=== PATIENT | female | born 1965 | race Hispanic/Latino ===

== ENCOUNTER 2019-02-08 05:33 | Emergency (ER) | payer SELFPAY ==
[2019-02-08 05:40] VITALS: BP 144/75
[2019-02-08] MEDS ORDERED: diphenhydrAMINE 25 MG CAP PO ONE (05:53)
[2019-02-08] MEDS ORDERED: FAMOTIDINE 20 MG TAB PO ONE (05:53)
[2019-02-08] MEDS ORDERED: predniSONE 20 MG TAB PO ONE (05:53)
--- NOTE | 2019-02-08 05:57 | Emergency Department Report ---
ED Rash HPI - HPI Chief Complaint: Skin Rash Stated Complaint: RASH Duration: 2 Days Location: Back, Abdomen, Upper Extremities, Lower Extremities Suspected Cause: Plant Rash Symptoms: Yes Itching, No Facial Swelling, No Tongue/Oral Swelling, No Breathing Difficulties, No Choking Sensation, No Wheezing/Dyspnea, No Peeling, No Blistering, No Fever, No Lightheaded, No Malaise, No Myalgias Severity: moderate (pt states she pulls weeds out of her garden 3 days, and started itching all lover wonc done) ED Review of Systems ROS: Stated complaint: RASH Other details as noted in HPI Constitutional: denies: chills, fever Eyes: denies: eye pain, eye discharge, vision change ENT: as per HPI. denies: congestion Respiratory: denies: cough, shortness of breath, wheezing Cardiovascular: denies: chest pain, palpitations Endocrine: no symptoms reported Gastrointestinal: denies: abdominal pain, nausea, diarrhea Genitourinary: denies: urgency, dysuria, discharge Musculoskeletal: denies: back pain, joint swelling, arthralgia Skin: rash. denies: lesions Neurological: denies: headache, weakness, numbness, paresthesias, confusion, vertigo Psychiatric: denies: anxiety, depression Hematological/Lymphatic: denies: easy bleeding, easy bruising ED Past Medical Hx - Past Medical History Previous Medical History?: No - Surgical History Past Surgical History?: Yes Additional Surgical History: ovary removed - Social History Smoking Status: Never Smoker Substance Use Type: Alcohol - Medications Home Medications: Home Medications Medication Instructions Recorded Confirmed Last Taken Type EPINEPHrine [Epipen 2-Linus] 0.3 mg IJ ONCE PRN #1 auto.injct 02/08/19 Unknown Rx Famotidine [Pepcid] 20 mg PO BID #30 tablet 02/08/19 Unknown Rx Triamcinolone Aceton 0.1% (Nf) 1 applic TP BID #1 tube 02/08/19 Unknown Rx [Kenalog (NF)] diphenhydrAMINE [Benadryl CAP] 25 mg PO Q8HR PRN #30 capsule 02/08/19 Unknown Rx predniSONE [Deltasone] 40 mg PO QDAY 5 Days #10 tab 02/08/19 Unknown Rx Rash Exam - Exam General: Vital signs noted. No distress. Alert and acting appropriately. HEENT: No Periorbital Edema, No Conjuctival Injection, No Chemosis, No Perioral Edema, No Tongue Edema, No Uvular Edema, No Compromised Airway, No Drooling Lungs: Yes Good Air Exchange, Yes Stridor, No Wheezes, No Ronchi, No Cough, No Labored Respirations, No Retractions, No Use of Accessory Muscles, No Other Abnormal Lung Sounds Heart: Yes Regular, No Murmur Skin: Yes Urticarial Rash, Yes Erythema, No Maculopapular Rash, No Morbilliform rash, No Bulla(e), No Excoriations, No Weeping, No Tenderness, No Edema, No Encrustations ED Course Vital Signs 02/08/19 05:39 Temperature 97.5 F L Pulse Rate 70 Respiratory 18 Rate Blood Pressure 144/75 [Right] O2 Sat by Pulse 97 Oximetry - Reevaluation(s) Reevaluation #1: There is no rest distress, no stridor, no swelling 02/08/19 05:58 ED Medical Decision Making - Medical Decision Making symptoms improved, rash desolving, there are no hive, no weeping, no fever, no n/v no cp, no sob, plan: prednisone, benadry, pepcid, pt given epipen and epipen teaching, pt verbalized agreement and understandlng of same, pt for dec to home in sable condition at this time. Critical care attestation.: If time is entered above; I have spent that time in minutes in the direct care of this critically ill patient, excluding procedure time. ED Disposition Clinical Impression: Contact dermatitis Qualifiers: Contact dermatitis type: allergic Contact dermatitis trigger: unspecified trigger Qualified Code(s): L23.9 - Allergic contact dermatitis, unspecified cause Allergies Qualifiers: Encounter type: initial encounter Qualified Code(s): T78.40XA - Allergy, unspecified, initial encounter Disposition: TO HOME OR SELFCARE Is pt being admited?: No Does the pt Need Aspirin: No Condition: Stable Instructions: Contact Dermatitis (ED), Allergies (ED), Epinephrine (Injection) Prescriptions: diphenhydrAMINE [Benadryl CAP] 25 mg PO Q8HR PRN #30 capsule PRN Reason: itching rash predniSONE [Deltasone] 40 mg PO QDAY 5 Days #10 tab EPINEPHrine [Epipen 2-Linus] 0.3 mg IJ ONCE PRN #1 auto.injct PRN Reason: severe allergies Triamcinolone Aceton 0.1% (Nf) [Kenalog (NF)] 1 applic TP BID #1 tube Famotidine [Pepcid] 20 mg PO BID #30 tablet Referrals: PRIMARY CARE,MD [Primary Care Provider] - 3-5 Days [facility] [Outside] - 3-5 Days Forms: Work/School Release Form(ED) Time of Disposition: 06:45
== END 2019-02-08 06:54 | disposition home or self-care (01) ==
LOC: ED 05:33
DX: L23.9 Allergic contact dermatitis, unspecified cause (principal); Z79.899 Other long term (current) drug therapy; Z88.0 Allergy status to penicillin
CPT/HCPCS: 99282; J7512

== ENCOUNTER 2019-11-22 12:24 | Emergency (ER) | payer SELFPAY ==
[2019-11-22 13:22] VITALS: BP 112/81
--- NOTE | 2019-11-22 15:42 | Event Note ---
ED Screening Note Date of service: 11/22/19 Time: 15:39 ED Screening Note: 54-year-old female presents here with right foot pain a couple of days ago after falling down some steps at home. Patient states she was in pain tensioning tripped. Limping gait, tender to palpation at the great and second toe of the right, no deformity seen This initial assessment/diagnostic orders/clinical plan/treatment(s) is/are subject to change based on patients health status, clinical progression and re-assessment by fellow clinical providers in the ED. Further treatment and workup at subsequent clinical providers discretion. Patient/guardian urged not to elope from the ED as their condition may be serious if not clinically assessed and managed. Initial orders include: xr foot
--- NOTE | 2019-11-22 16:19 | XRay Report ---
Right foot-3 views INDICATION: MAIN. Fall with pain over the second through fourth toes COMPARISON: None. IMPRESSION: Mild soft tissue swelling about the forefoot with no acute fracture or malalignment. No significant DJD. Signer Name: Kai Bunch MD Signed: 11/22/2019 4:14 PM Workstation Name: [id number]
[2019-11-22] MEDS ORDERED: HYDROcodone/ACETAMINOPHEN 5-325 MG TAB PO ONE (17:17)
--- NOTE | 2019-11-22 17:28 | Emergency Department Report ---
<ISAAC EDWARDS - Last Filed: 11/22/19 17:34> ED Extremity Problem HPI - General Chief complaint: Extremity Injury, Lower Stated complaint: FOOT PAIN Time Seen by Provider: 11/22/19 17:16 Source: patient Mode of arrival: Ambulatory Limitations: No Limitations - History of Present Illness Initial comments: 54-year-old female presents here with right foot pain a couple of days ago after falling down some steps at home. Patient states she was pain attention and she tripped down and stepped wrong on a couple of steps. She was at home denies falling loss of consciousness. Patient states pain is getting worse and pain with walking MD Complaint: extremity pain - Related Data Previous Rx's Medication Instructions Recorded Last Taken Type EPINEPHrine [Epipen 2-Linus] 0.3 mg IJ ONCE PRN #1 auto.injct 02/08/19 Unknown Rx Famotidine [Pepcid] 20 mg PO BID #30 tablet 02/08/19 Unknown Rx Triamcinolone Aceton 0.1% (Nf) 1 applic TP BID #1 tube 02/08/19 Unknown Rx [Kenalog (NF)] diphenhydrAMINE [Benadryl CAP] 25 mg PO Q8HR PRN #30 capsule 02/08/19 Unknown Rx predniSONE [Deltasone] 40 mg PO QDAY 5 Days #10 tab 02/08/19 Unknown Rx Allergies Allergy/AdvReac Type Severity Reaction Status Date / Time Penicillins Allergy Unknown Verified 02/08/19 05:38 ED Past Medical Hx - Past Medical History Previous Medical History?: No - Surgical History Past Surgical History?: Yes Additional Surgical History: ovary removed - Social History Smoking Status: Never Smoker Substance Use Type: None - Medications Home Medications: Home Medications Medication Instructions Recorded Confirmed Last Taken Type EPINEPHrine [Epipen 2-Linus] 0.3 mg IJ ONCE PRN #1 auto.injct 02/08/19 Unknown Rx Famotidine [Pepcid] 20 mg PO BID #30 tablet 02/08/19 Unknown Rx Triamcinolone Aceton 0.1% (Nf) 1 applic TP BID #1 tube 02/08/19 Unknown Rx [Kenalog (NF)] diphenhydrAMINE [Benadryl CAP] 25 mg PO Q8HR PRN #30 capsule 02/08/19 Unknown Rx predniSONE [Deltasone] 40 mg PO QDAY 5 Days #10 tab 11/06/19 Unknown Rx ED Physical Exam - General Limitations: No Limitations General appearance: alert, in no apparent distress - Head Head exam: Present: atraumatic, normocephalic - Eye Eye exam: Present: normal appearance - ENT ENT exam: Present: mucous membranes moist - Neck Neck exam: Present: normal inspection - Respiratory Respiratory exam: Present: normal lung sounds bilaterally. Absent: respiratory distress - Cardiovascular Cardiovascular Exam: Present: regular rate, normal rhythm. Absent: systolic murmur, diastolic murmur, rubs, gallop - GI/Abdominal GI/Abdominal exam: Present: soft, normal bowel sounds - Extremities Exam Extremities exam: Present: normal inspection, other (Limping gait, tender to palpation at the great and second toe of the right, no deformity seen) - Back Exam Back exam: Present: normal inspection - Neurological Exam Neurological exam: Present: alert, oriented X3 - Psychiatric Psychiatric exam: Present: normal affect, normal mood - Skin Skin exam: Present: warm, dry, intact, normal color. Absent: rash ED Medical Decision Making - Radiology Data Radiology results: report reviewed, image reviewed Fluoro Time In Minutes: Right foot-3 views INDICATION: MAIN. Fall with pain over the second through fourth toes COMPARISON: None. IMPRESSION: Mild soft tissue swelling about the forefoot with no acute fracture or malalignment. No significant DJD. Signer Name: Kai Bunch MD Signed: 11/22/2019 4:14 PM Workstation Name: [id number] Transcribed By: KARO Dictated By: Kai Bunch MD Electronically Authenticated By: Kai Bunch MD Signed Date/Time: 11/22/19 1614 ED Disposition Clinical Impression: Contusion of right foot, Foot sprain Disposition: DC-01 TO HOME OR SELFCARE Condition: Stable Instructions: Foot Contusion (ED), Foot Sprain (ED) Referrals: EDGARD GARDNER DPM [Staff Physician] - as needed <JAI ROGERS - Last Filed: 11/22/19 17:47> ED Review of Systems ROS: Stated complaint: FOOT PAIN Other details as noted in HPI ED Course Vital Signs 11/22/19 11/22/19 13:19 15:38 Temperature 98.0 F 98 F Pulse Rate 98 H 93 H Respiratory 18 18 Rate Blood Pressure 112/81 112/81 O2 Sat by Pulse 96 100 Oximetry ED Medical Decision Making - Medical Decision Making Ms. Zendejas has right foot contusion. I personally evaluated patient. She has pain at the dorsal portion of the forefoot. No deformity. 2+ radial pulse intact. She was placed with Ousmane wrap. Ousmane wrap was applied to the left leg and ankle under my supervision. After application of the Ousmane wrap, the extremity was neurovascularly intact. Patient also was given postop shoe she understands that there is a risk of stress fracture. She was referred to ankle and produce specialist if pain persists beyond 2 weeks. Critical care attestation.: If time is entered above; I have spent that time in minutes in the direct care of this critically ill patient, excluding procedure time. ED Disposition Is pt being admited?: No Does the pt Need Aspirin: No
== END 2019-11-22 18:00 | disposition home or self-care (01) ==
LOC: ED 12:24
DX: S93.601A Unspecified sprain of right foot, initial encounter (principal); S90.31XA Contusion of right foot, initial encounter; Z79.899 Other long term (current) drug therapy; Z98.890 Other specified postprocedural states; W10.9XXA Fall (on) (from) unspecified stairs and steps, initial encounter; Y93.89 Activity, other specified; Y92.89 Other specified places as the place of occurrence of the external cause; Y99.8 Other external cause status
CPT/HCPCS: 99283

== ENCOUNTER 2020-01-16 13:29 | Emergency (ER) | payer SELFPAY ==
--- NOTE | 2020-01-16 16:46 | XRay Report ---
CHEST 2 VIEWS INDICATION / CLINICAL INFORMATION: Shortness of breath, cough. COMPARISON: None available. FINDINGS: SUPPORT DEVICES: None. HEART / MEDIASTINUM: No significant abnormality. LUNGS / PLEURA: No significant pulmonary or pleural abnormality. No pneumothorax. ADDITIONAL FINDINGS: No significant additional findings. IMPRESSION: No acute cardiopulmonary abnormality. Signer Name: John Castrejon MD Signed: 01/16/2020 4:41 PM Workstation Name: [id number]
--- NOTE | 2020-01-16 20:11 | Emergency Department Report ---
ED Chest Pain HPI - General Chief Complaint: Upper Respiratory Infection Stated Complaint: FLU SYMPTOMS Time Seen by Provider: 01/16/20 20:01 Source: patient Mode of arrival: Ambulatory Limitations: No Limitations - History of Present Illness Initial Comments: 54 female no significant past medical history presents emerge department complaining of a 2-day history of cough congestion associated with loss of taste headaches myalgia chills and occasional shortness of breath and then positive contact persons in the household have come down with a cold for which she thinks is the flu. She reports no diarrhea no known positive COVID-19 cases. No hemoptysis no hematemesis no hematochezia. No documented fevers. She reports no hematuria no dysuria no abdominal pain. No lower extremity edema. No rashes. States the cough is beginning to be more more aggravating and her symptoms do worsen with certain movements and palpation and she would like some medication to help control the cough and help her breathing. MD Complaint: chest pain Pain Location: substernal Pain Radiation: none Severity: mild, moderate Quality: aching, sharp Consistency: constant Worsens With: palpation, movement Treatments Prior to Arrival: none - Related Data Previous Rx's Medication Instructions Recorded Last Taken Type EPINEPHrine [Epipen 2-Linus] 0.3 mg IJ ONCE PRN #1 auto.injct 02/08/19 Unknown Rx Famotidine [Pepcid] 20 mg PO BID #30 tablet 02/08/19 Unknown Rx Triamcinolone Aceton 0.1% (Nf) 1 applic TP BID #1 tube 02/08/19 Unknown Rx [Kenalog (NF)] diphenhydrAMINE [Benadryl CAP] 25 mg PO Q8HR PRN #30 capsule 02/08/19 Unknown Rx predniSONE [Deltasone] 40 mg PO QDAY 5 Days #10 tab 02/08/19 Unknown Rx Albuterol Mdi (or & Nicu Only) 1 puff IH Q4-6H PRN #1 inha 01/16/20 Unknown Rx [ProAir HFA Inhaler] Azithromycin [Zithromax] 500 mg PO QDAY #3 tablet 01/16/20 Unknown Rx Benzonatate [Tessalon Perles] 100 mg PO Q8HR #20 capsule 01/16/20 Unknown Rx Allergies Allergy/AdvReac Type Severity Reaction Status Date / Time Penicillins Allergy Unknown Verified 02/08/19 05:38 Heart Score - HEART Score History: Slightly suspicious EKG: Normal Age: 45-65 Risk factors: No known risk factors Troponin: < normal limit HEART Score: 1 ED Review of Systems ROS: Stated complaint: FLU SYMPTOMS Other details as noted in HPI Comment: All other systems reviewed and negative ED Past Medical Hx - Past Medical History Previous Medical History?: No - Surgical History Past Surgical History?: Yes Additional Surgical History: ovary removed - Social History Smoking Status: Never Smoker Substance Use Type: None - Medications Home Medications: Home Medications Medication Instructions Recorded Confirmed Last Taken Type EPINEPHrine [Epipen 2-Linus] 0.3 mg IJ ONCE PRN #1 auto.injct 02/08/19 Unknown Rx Famotidine [Pepcid] 20 mg PO BID #30 tablet 02/08/19 Unknown Rx Triamcinolone Aceton 0.1% (Nf) 1 applic TP BID #1 tube 02/08/19 Unknown Rx [Kenalog (NF)] diphenhydrAMINE [Benadryl CAP] 25 mg PO Q8HR PRN #30 capsule 02/08/19 Unknown Rx predniSONE [Deltasone] 40 mg PO QDAY 5 Days #10 tab 02/08/19 Unknown Rx Albuterol Mdi (or & Nicu Only) 1 puff IH Q4-6H PRN #1 inha 01/16/20 Unknown Rx [ProAir HFA Inhaler] Azithromycin [Zithromax] 500 mg PO QDAY #3 tablet 01/16/20 Unknown Rx Benzonatate [Tessalon Perles] 100 mg PO Q8HR #20 capsule 01/16/20 Unknown Rx ED Physical Exam - General Limitations: No Limitations General appearance: alert, in no apparent distress - Head Head exam: Present: atraumatic, normocephalic - Eye Eye exam: Present: normal appearance, PERRL, EOMI Pupils: Present: normal accommodation - ENT ENT exam: Present: normal exam, normal orophraynx, mucous membranes moist - Neck Neck exam: Present: normal inspection, full ROM (With palpation on the sternal region.) - Respiratory Respiratory exam: Present: normal lung sounds bilaterally, chest wall tenderness. Absent: respiratory distress, wheezes, rales, rhonchi - Cardiovascular Cardiovascular Exam: Present: regular rate, normal rhythm. Absent: systolic murmur, diastolic murmur, rubs, gallop - GI/Abdominal GI/Abdominal exam: Present: soft, tenderness, normal bowel sounds - Extremities Exam Extremities exam: Present: normal inspection - Back Exam Back exam: Present: normal inspection - Neurological Exam Neurological exam: Present: alert, oriented X3 - Psychiatric Psychiatric exam: Present: normal affect, normal mood - Skin Skin exam: Present: warm, dry, intact, normal color. Absent: rash ED Course Vital Signs 01/16/20 15:12 Temperature 98.8 F Pulse Rate 105 H Respiratory 22 Rate Blood Pressure 144/95 [Right] O2 Sat by Pulse 95 Oximetry JOSHUA score - Joshua Score Age > 65: (0) No Aspirin use within the Past 7 Days: (0) No 3 or more CAD Risk Factors: (0) No 2 or more Angina events in past 24 hrs: (0) No Known CAD with more than 50% Stenosis: (0) No Elevated Cardiac Markers: (0) No ST Deviation Greater than 0.5mm: (0) No JOSHUA Score: 0 ED Medical Decision Making - Lab Data Result diagrams: 01/16/20 20:12 01/16/20 20:12 Lab Results 01/16/20 01/16/20 Range/Units 20:12 20:12 WBC 7.9 (4.5-11.0) K/mm3 RBC 4.73 (3.65-5.03) M/mm3 Hgb 15.4 H (10.1-14.3) gm/dl Hct 46.0 H (30.3-42.9) % MCV 97 (79-97) fl MCH 33 H (28-32) pg MCHC 33 (30-34) % RDW 13.9 (13.2-15.2) % Plt Count 295 (140-440) K/mm3 Lymph % (Auto) 30.6 (13.4-35.0) % [place] % (Auto) 6.2 (0.0-7.3) % Eos % (Auto) 3.3 (0.0-4.3) % Baso % (Auto) 0.6 (0.0-1.8) % Lymph # (Auto) 2.4 (1.2-5.4) K/mm3 [place] # (Auto) 0.5 (0.0-0.8) K/mm3 Eos # (Auto) 0.3 (0.0-0.4) K/mm3 Baso # (Auto) 0.0 (0.0-0.1) K/mm3 Seg Neutrophils % 59.3 (40.0-70.0) % Seg Neutrophils # 4.7 (1.8-7.7) K/mm3 Sodium 139 (137-145) mmol/L Potassium 4.4 (3.6-5.0) mmol/L Chloride 104.7 (98-107) mmol/L Carbon Dioxide 22 (22-30) mmol/L Anion Gap 17 mmol/L BUN 10 (7-17) mg/dL Creatinine 0.6 (0.6-1.2) mg/dL Estimated GFR > 60 ml/min BUN/Creatinine Ratio 17 % Glucose 117 H (65-100) mg/dL Calcium 8.9 (8.4-10.2) mg/dL Total Bilirubin 0.20 (0.1-1.2) mg/dL AST 24 (5-40) units/L ALT 29 (7-56) units/L Alkaline Phosphatase 67 (35-129) units/L Troponin T < 0.010 (0.00-0.029) ng/mL NT-Pro-B Natriuret Pep 54.00 (0-900) pg/mL Total Protein 6.2 L (6.3-8.2) g/dL Albumin 3.9 (3.9-5) g/dL Albumin/Globulin Ratio 1.7 % Lipase 62 H (13-60) units/L - EKG Data EKG shows normal: sinus rhythm Rate: normal - EKG Data Interpretation: normal EKG 01/16/20 22:27 Heart rate 75 QT normal limits [place] interval normal limits voltage - Radiology Data Radiology results: report reviewed [facility] [address] [place] [address] XRay Report Signed Patient: HAYLEY KAY MR#: [id number] : 1965 Acct:[id number] Age/Sex: 54 / F ADM Date: 01/16/20 Loc: ED Attending Dr: Ordering Physician: ED MD JEANIE Date of Service: 01/16/20 Procedure(s): XR chest routine 2V Accession Number(s): [id number] cc: ED DOCMD Fluoro Time In Minutes: CHEST 2 VIEWS INDICATION / CLINICAL INFORMATION: Shortness of breath, cough. COMPARISON: None available. FINDINGS: SUPPORT DEVICES: None. HEART / MEDIASTINUM: No significant abnormality. LUNGS / PLEURA: No significant pulmonary or pleural abnormality. No pneumothorax. ADDITIONAL FINDINGS: No significant additional findings. IMPRESSION: No acute cardiopulmonary abnormality. Signer Name: Sam Castrejon MD Signed: 01/16/2020 4:41 PM Workstation Name: [id number] Transcribed By: SS Dictated By: SAM CASTREJON Electronically Authenticated By: SAM CASTREJON Signed Date/Time: 01/16/20 1641 DD/ 1640 TD/TT: - Medical Decision Making this patient presents with chest pain that is very unlikely angina or acute coronary syndrome. The emergency department evaluation has not identified any cause for suspicion that this chest pain has a cardiac etiology. Based on their history, EKG (which showed no evidence of ischemia or infarction) and imaging, in addition to the patient's physical exam, I see no evidence at this time for a malignant etiology for the patient's chest pain. There is no acute evidence for pulmonary embolus, acute myocardial infarction, pneumothorax, Boerhaeve syndrome, cardiac tamponade, thoracic artery dissection, or any other emergent cardiac, pulmonary or aortic pathology. Given the low pre-test probability for cardiac etiology of chest pain and the absence of any sign of ischemia or infarction, discharge for outpatient follow-up and further evaluation is reasonable. I have explained to the patient that even though a cardiac problem is very unlikely, follow-up and further testing is required to reduce further the already small uncertainty that exists. Other life-threatening diagnoses have been considered. The patient understands the need to return immediately if their symptoms worsen or they develop any new symptoms, and not to engage in any significant exertional activity until follow-up is obtained. Critical care attestation.: If time is entered above; I have spent that time in minutes in the direct care of this critically ill patient, excluding procedure time. ED Disposition Clinical Impression: Bronchitis, Cough Disposition: DC-01 TO HOME OR SELFCARE Is pt being admited?: No Does the pt Need Aspirin: No Condition: Stable Instructions: Chronic Bronchitis (ED), Dextromethorphan (By mouth), Cold Symptoms (ED), Viral Syndrome (ED) Referrals: PRIMARY CARE, [Primary Care Provider] - 3-5 Days
[2020-01-16 20:52] LABS: Basophils % (Auto) 0.6 % (0.0-1.8); Eosinophils # (Auto) 0.3 K/mm3 (0.0-0.4); Eosinophils % (Auto) 3.3 % (0.0-4.3); Hemoglobin 15.4 gm/dl (10.1-14.3); Lymphocytes # (Auto) 2.4 K/mm3 (1.2-5.4); Lymphocytes % (Auto) 30.6 % (13.4-35.0); Mean Corpuscular HGB Conc 33 % (30-34); Mean Corpuscular Volume 97 fl (79-97); Monocytes # (Auto) 0.5 K/mm3 (0.0-0.8); Monocytes % (Auto) 6.2 % (0.0-7.3); Platelet Count 295 K/mm3 (140-440); Red Blood Count 4.73 M/mm3 (3.65-5.03); Red Cell Distribution Width 13.9 % (13.2-15.2)
[2020-01-16 21:00] LABS: Alanine Aminotransferase 29 units/L (7-56); Albumin 3.9 g/dL (3.9-5); Blood Urea Nitrogen 10 mg/dL (7-17); Calcium 8.9 mg/dL (8.4-10.2); Hemolysis Index 24
[2020-01-16 21:02] LABS: BUN/Creatinine Ratio 17
[2020-01-16 23:42] VITALS: BP 132/88
== END 2020-01-16 23:50 | disposition home or self-care (01) ==
LOC: ED 13:29
DX: J02.9 Acute pharyngitis, unspecified (principal); Z88.0 Allergy status to penicillin
CPT/HCPCS: 36415; 71046; 80053; 83690; 83880; 84484; 85025; 93005

== ENCOUNTER 2020-09-10 08:43 | Emergency (ER) | payer SELFPAY ==
[2020-09-10 09:49] VITALS: BP 132/74
== END 2020-09-10 10:47 | disposition home or self-care (01) ==
LOC: ED 08:43
DX: L30.9 Dermatitis, unspecified (principal); Z98.890 Other specified postprocedural states
CPT/HCPCS: 99281